=== PATIENT | female | born 1965 | race Hispanic/Latino ===

== ENCOUNTER 2019-01-29 07:19 | Day surgery (SDC) | payer BC ==
--- NOTE | 2019-01-27 17:07 | RAD REPORT ---
EXAM DESCRIPTION: RAD - Chest Pa And Lat (2 Views) - 01/27/2019 4:41 pm CLINICAL HISTORY: Preop chest examination, pending cholecystectomy COMPARISON: March 2016 TECHNIQUE: PA and lateral views of the chest were obtained. FINDINGS: The lungs are clear. Lung markings are similar to comparison. Heart size is normal and ce ntral vasculature is within normal limits. No pleural effusion or pneumothorax seen. No acute bony finding noted. No aortic abnormality. IMPRESSION: No acute cardiopulmonary process. No significant change from comparison.
[2019-01-27 17:13] LABS: Absolute Lymphocytes (CBC) 2.4 K/uL (0.7-4.9); Absolute Monocytes 0.9 K/uL (0.1-1.3); Absolute Neutrophil 6.6 K/uL (1.8-8.0); Basophils % 1.4 % (0-1.3); Eosinophils % 1.4 % (0-4.4); Hematocrit 45.6 % (36.0-45.0); Lymphocytes % 23.8 % (15.3-44.8); MPV 8.7 fL (7.6-11.3); Monocytes % 8.5 % (3.3-12.3); RBC Red Blood Cell Count 4.99 M/uL (3.86-4.86)
[2019-01-27 17:27] LABS: ALT/SGPT 25 U/L (12-78); AST/SGOT 17 U/L (15-37); Alkaline Phosphatase 91 U/L (45-117); Amylase Level 48 U/L (25-115); Bilirubin Direct < 0.1 mg/dL (0-0.2); Bilirubin Total 0.2 mg/dL (0.2-1.0); Lipase 129 U/L (73-393); Potassium 3.8 mmol/L (3.5-5.1); Protein, Total 8.1 g/dL (6.4-8.2)
--- NOTE | 2019-01-28 07:14 | EKG ---
Test Date: 2019-01-27 Test Time: 16:34:34 Wood Pole Treater: HAIM MEASUREMENT RESULTS: Intervals: Rate: 80 OR: 154 QRSD: 76 QT: 372 QTc: 429 [place]: P: 40 OR: 154 QRS: 16 T: 40 INTERPRETIVE STATEMENTS: Normal sinus rhythm Possible Left atrial enlargement Borderline ECG Compared to ECG 11/09/2011 08:50:12 No significant changes Electronically Signed On 01-28-19 07:13:28 CDT by Adi Gallegos
[2019-01-29] MEDS ORDERED: Ringers Lactate 1,000 ML IV ONE (07:37)
[2019-01-29] MEDS ORDERED: CEFOXITIN/SWI 1gm 1 GM/10 ML SYR ONE (07:52)
[2019-01-29] MEDS ORDERED: LIDOCAINE 2% MPF 5 ML VIAL ONE (08:02)
[2019-01-29] MEDS ORDERED: ROCURONIUM 50 MG/5 ML VIAL IV ONE (08:02)
[2019-01-29] MEDS ORDERED: FENTANYL CITR 100 MCG/2 ML ONE (08:02)
[2019-01-29] MEDS ORDERED: MIDAZOLAM HCL 2 MG/2 ML INJ ONE (08:02)
[2019-01-29] MEDS ORDERED: PROPOFOL 200 MG/20 ML VIAL IV ONE (08:03)
[2019-01-29] MEDS ORDERED: DEXAMETHASONE 10 MG/ML VIAL ONE (08:03)
[2019-01-29] MEDS ORDERED: BUPIVACAINE 0.5% PF 10 ML VIAL ONE (09:10)
[2019-01-29] MEDS ORDERED: GLYCOPYRROLATE 0.2 MG/ML SYR ONE ×2 (09:12→09:24)
[2019-01-29] MEDS ORDERED: KETOROLAC 30 MG/ML INJ ONE (09:24)
[2019-01-29] MEDS ORDERED: NEOSTIGMINE 1 MG/ML -10 ML VIAL ONE (09:25)
[2019-01-29] MEDS ORDERED: MORPHINE 10 MG/ML VIAL ONE (09:28)
--- NOTE | 2019-01-29 09:29 | P.BOP ---
Preoperative diagnosis: symptomatic cholelithiasis, gallbladder polyps Postoperative diagnosis: same Primary procedure: Laparoscopic cholecystectomy Cold Type Composing Machine Operator: Anna Stephens (Ernestine) Estimated blood loss: <10cc Specimen: gb Findings: as above Anesthesia: General Complications: None Transferred to: Recovery Room Condition: Good
[2019-01-29] MEDS: HYDROMORPHONE HCL 1 MG/ML INJ ONE ×2 (09:54→10:08)
[2019-01-29] MEDS ORDERED: CODEINE 30MG/APAP 300MG TAB ONE (11:00)
[2019-01-29] MEDS ORDERED: ONDANSETRON 4 MG/2 ML VIAL ONE (11:01)
--- NOTE | 2019-01-30 00:45 | OP ---
Date of Procedure: 01/29/2019 Surgeon: Frankie El MD Copy Holder: Griffin Kaur Preoperative Diagnoses: Symptomatic cholelithiasis, gallbladder polyps, right upper quadrant pain. Postoperative Diagnoses: Symptomatic cholelithiasis, gallbladder polyps, right upper quadrant pain. Procedure: Laparoscopic cholecystectomy. Ebl: Less than 10 cc. Specimen: Gallbladder. Anesthesia: General plus local. Indications: This is the case of a female who comes to us with above diagnosis. Fully explained the benefits, alternatives, risks of laparoscopic, possible open cholecystectomy, which include, but not limited to infection, bleeding, damage to adjacent structures, anesthesia complication, choledocholi thiasis, bile leak, pancreatitis, [place], even . She also understands this may not relieve any symp toms, she might need more than one surgical intervention. She understood, signed a consent. Description Of Procedure: The patient was brought to the operating room, placed in supine position. Anesthesia was done without complication. Abdominal area was prepped and draped in a sterile fashio n. Marcaine 0.5% was injected for local anesthetic, followed by sharp incision of the skin in the in fraumbilical region. Incision was carried down to fascia, which was opened under direct vision. Per itoneum was encountered, opened under direct vision. Vicryl #1 was placed inside the fascia. Dimple trocar was carefully introduced. Pneumoperitoneum was obtained. I placed 3 more trocars, 5 mm each one of them, 1 in the epigastric area, 2 in the right upper quadrant under direct visualization. Th is allowed me to put a grasper in the fundus of the gallbladder, another grasper in the infundibulum, retracted the gallbladder in the inferolateral fashion exposing the triangle of Calot and obtaining critical view of safety. Cystic duct and cystic artery were clearly isolated, freed circumferentiall y, and a connection between those and the gallbladder were clearly identified. I proceeded to ligate those by using at least 3 clips proximal, 1 clip distal, ligation in middle. Same was done with the cystic artery. No bile leak. No bleeding. The gallbladder was removed from liver using Bovie caut erizer and removed from abdominal cavity using EndoCatch through the umbilical incision. The area wa s inspected once again. No bile leak. No bleeding. At that moment, I proceeded to remove the troca rs under direct vision, deflated the pneumoperitoneum, closed the fascia with #1 Vicryl, irrigated coles bcu tissue, closed that with 3-0 chromic and skin in a subcuticular fashion with 3-0 chromic. Sponge count and instrument counts were correct. The patient tolerated the procedure well. The patient wa s sent to recovery in stable condition. CORNELIO/BETSEY Voice ID: [id number] Report ID: [id number]
--- NOTE | 2019-01-30 00:48 | DS ---
Date of Discharge: 01/29/2019 Diagnosis: Symptomatic cholelithiasis, gallbladder polyps. Procedure: Laparoscopic cholecystectomy. Disposition: Home. Activity: As tolerated. No heavy lifting. Followup: Follow up in my office in 1 week. Call for appointment, [phone]. Keep the area dry for 48 hours, then may shower. Keep Steri-Strips intact. Medications: See orders. CORNELIO/BETSEY Voice ID: [id number] Report ID: [id number]
== END 2019-01-29 11:45 | disposition home or self-care (01) ==
LOC: OR 07:19
PROVIDERS: ATTEND Surgery
PROC: 0FT44ZZ Resection of Gallbladder, Percutaneous Endoscopic Approach (ICD-10-PCS; principal; 2019-01-29 08:45)
DX: K80.10 Calculus of gallbladder with chronic cholecystitis without obstruction (principal); I10 Essential (primary) hypertension; Z79.899 Other long term (current) drug therapy
CPT/HCPCS: 36415; 71046; 80048; 80076; 82150; 83690; 85025; 88304; 93005; J1100; J1170; J2250; J2405; J2704; J2710; J3010

== ENCOUNTER 2021-05-24 11:54 | Day surgery (SDC) | payer OTHER ==
--- NOTE | 2021-05-18 14:49 | RAD REPORT ---
EXAM DESCRIPTION: RAD - Chest Pa And Lat (2 Views) - 05/18/2021 2:19 pm CLINICAL HISTORY: preop, pending bladder surgery COMPARISON: December 2018 TECHNIQUE: Frontal and lateral views of the chest were obtained. FINDINGS: The lungs are clear. Interstitial pattern matches comparison. Heart size is normal and ce ntral vasculature is within normal limits. No pleural effusion or pneumothorax seen. No acute bony finding noted. No aortic abnormality. IMPRESSION: No acute cardiopulmonary process. No significant change from comparison study.
--- NOTE | 2021-05-18 16:24 | EKG ---
Test Date: 2021-05-18 Test Time: 13:08:38 Ticket Printer: ZOE MEASUREMENT RESULTS: Intervals: Rate: 82 [place]: 154 QRSD: 74 QT: 372 QTc: 434 [place]: P: 43 [place]: 154 QRS: 24 T: 53 INTERPRETIVE STATEMENTS: Normal sinus rhythm Normal ECG Compared to ECG 01/27/2019 16:34:34 No significant changes Electronically Signed On 05-18-21 16:22:44 CDT by Ananth Carrasquillo
[2021-05-19 09:25] LABS: Urine Appearance CLEAR (Clear); Urine Bilirubin NEGATIVE (Negative); Urine Blood NEGATIVE (Negative); Urine Color YELLOW (Yellow); Urine Glucose NEGATIVE (Negative); Urine Protein NEGATIVE (Negative); Urine Urobilinogen 0.2 mg/dL (0.2-1.0); Urine pH 5.5 (5.0-7.0)
[2021-05-19 09:46] LABS: Absolute Lymphocytes (CBC) 1.7 K/uL (0.7-4.9); Basophils % 0.8 % (0-1.3); Hematocrit 41.6 % (36.0-45.0); Lymphocytes % 23.6 % (15.3-44.8); MPV 8.2 fL (7.6-11.3); RBC Red Blood Cell Count 4.51 M/uL (3.86-4.86)
[2021-05-19 09:54] LABS: BUN Blood Urea Nitrogen 19 mg/dL (7-18); Bicarbonate 25 mmol/L (21-32); Glucose Level 105 mg/dL (74-106); Potassium 3.8 mmol/L (3.5-5.1); Sodium Level 141 mmol/L (136-145)
[2021-05-19 10:05] LABS: Urine Microscopic Reflex ORDER UMIC
[2021-05-19 10:06] LABS: Urine Bacteria <20 /HPF (<20); Urine RBC <5 /HPF (NONE SEEN)
[2021-05-24] MEDS ORDERED: Ringers Lactate 1,000 ML IV ONE (12:33)
[2021-05-24] MEDS ORDERED: CEFAZOLIN/SWI 1gm 1 GM/10 ML SYR ONE ×3 (12:33→20:56)
[2021-05-24] MEDS ORDERED: FENTANYL CITR 100 MCG/2 ML ONE (20:07)
[2021-05-24] MEDS ORDERED: propofoL 200 MG/20 ML VIAL IV ONE (20:08)
[2021-05-24] MEDS ORDERED: LIDOCAINE 1% MPF 5 ML VIAL ONE (20:08)
[2021-05-24] MEDS ORDERED: MIDAZOLAM HCL 2 MG/2 ML INJ ONE (20:08)
[2021-05-24] MEDS ORDERED: dexAMETHasone 4 MG/ML VIAL ONE (20:08)
[2021-05-24] MEDS ORDERED: ONDANSETRON 4 MG/2 ML VIAL ONE (20:10)
[2021-05-24] MEDS ORDERED: NA CHLORIDE 0.9% 50 ML ONE (20:23)
[2021-05-24] MEDS: BUPIVACAINE 0.25% PF 10 ML VIAL ONE ×2 (20:39→20:41)
[2021-05-24] MEDS: VASOPRESSIN 20 UNIT/ML VIAL ONE ×2 (20:41→21:00)
[2021-05-24] MEDS ORDERED: IBUPROFEN 200 MG TAB PO PRN (21:10)
[2021-05-24] MEDS ORDERED: HYDROCODONE/APAP 5/325 MG TAB PO PRN (21:10)
[2021-05-24] MEDS ORDERED: HOME MED 1 EA UNK (Estradiol [Estradiol] 42.5 GM Cream.Appl) VG SCH (21:15)
--- NOTE | 2021-05-24 21:15 | P.BOP ---
Preoperative diagnosis: BRIE Postoperative diagnosis: same Primary procedure: MUS T-O (TVT-O) cystoscopy Manager Rail: NONE,NONE Estimated blood loss: min Specimen: none Findings: -1/-1/-/6/mod/7-8/-1/0/-6 Complications: None Drain(s): Urinary catheter Implants: tvt-o Transferred to: Recovery Room Condition: Good
[2021-05-24] MEDS: MEPERIDINE HCL 25 MG/ML SYR ONE ×2 (21:53→22:05)
--- NOTE | 2021-05-24 22:01 | OP ---
Date of Procedure: 05/24/2021 Surgeon: Hillary Kirby MD Preoperative Diagnosis: Stress urinary incontinence. Postoperative Diagnosis: Stress urinary incontinence. Procedures Performed: Mid urethral sling through the transobturator approach (TVT-O) and cystoscopy. Anesthesia: General. Specimens: No specimens. Complications: No complications. Drains: Urinary catheter. Implants: TVT-O. Findings: -1, -1, -4, 6 moderate, 7 to 8, -1, 0, and -6. There was a POP-Q urethral hypermobility i n the outpatient setting, mixed incontinence for this patient. She is already on an anticholinergic to treat the overactivity. Description Of Procedure: After informed consent was verified, she was brought back to the OR, place d in supine fashion on the operating table. 2 g of Ancef were given. She was placed in a dorsal lit hotomy position using Mohamud stirrups. Abdomen, vulva, vagina, and perineum were prepped and draped i n a sterile fashion. Chavis was placed to drain the bladder and then retracted superiorly. Scant dony unt of urine was voided. She has been n.p.o. all day. However, she has received IV fluids. Her urinary output needs to be monitored at home. Mid urethral area was picked up with Allis clamps after the POP-Q was done, injected with dilute vaso pressin 20 mL in the midline and on both sides. A 1 cm incision was made in the mid urethral area wi th a 15 blade. There was a slight indentation on the vaginal epithelium and underlying subcutaneous tissues right in the area of the incision to be made. Strangely, no other scar or foreign body was n oted at this point. An incision was made with a scalpel 1 cm. Underlying fascia was also retracted with Allis clamps wit h the dissection was performed underneath, creating a tunnel for the sling carrying to the obturator space, hugging the inferior pubic ramus at a 45-degree angle to the horizontal and vertical planes. Once the obturator membrane was perforated, the track was expanded by pulling the scissors out while they were kept open. Once the track was widened optimally, then dissection was performed on the oppo site side in a very similar manner without any problems. The kit was opened. Wing guide was placed. Needle was guided through the wing guide and made sure t hat there was no perforation in the fornix, then hugging the inferior pubic ramus. Once the guide wa s removed, the spike was passed. The plastic dilator was retrieved at least 2-3 cm outside the groin fold at the horizontal line at least about a cm and half above the level of the external meatus. Th e dilator was pulled out through the skin. Plastic dilator was cut. Mesh and grafts were clamped wi th a Diana, similar pass on the opposite side and once the dilator was cut, mesh and grafts were clam ped. The mid urethral area was focused on and tensioning of the sling was done appropriately. Then, the mesh was irrigated with antibiotic solution and the area was closed with a continuous running 3- 0 Vicryl suture making sure the edges of the vaginal epithelial incision and the connective tissues w ere all apposed and completely closed. There was excellent hemostasis. The mesh was trimmed, flushe d with the skin, and skin incisions and the groins were closed with Dermabond. Instrument, needle, a nd sponge counts were correct at the end of the case. Chavis was removed and cystoscopy was performed with a 30-degree lens, normal saline, and 17-[place] sheath. No evidence of any trauma to the bladde r or foreign body. No evidence of any tumor, squamous metaplasia in the trigonal area. The rest of the bladder unremarkable. Scope was pulled out. Bladder was drained. Chavis was replaced. The jennifer ent was recovered from anesthesia and taken to PACU in stable condition. EBL was minimal. She will be discharged home with a Chavis and she will have a voiding trial in the morning. YUMIKO/BETSEY Voice ID: [id number] Report ID: [id number]
[2021-05-24] MEDS ORDERED: ACETAMINOPHEN 500 MG TAB ONE (22:52)
[2021-05-24 23:38] VITALS: BP 136/72; TEMP 97.6; O2SAT 100
[2021-05-25] MEDS ORDERED: lisinopriL 20 MG TAB PO SCH (06:00)
[2021-05-25] MEDS ORDERED: HOME MED 1 EA UNK (Oxybutynin Chloride [Oxybutynin Chloride Er] 10 MG Tab.Er.24) PO SCH (09:00)
== END 2021-05-24 23:15 | disposition home or self-care (01) ==
LOC: OR 11:54
PROVIDERS: ATTEND Obstetrics & Gynecology
PROC: 0TSD0ZZ Reposition Urethra, Open Approach (ICD-10-PCS; principal; 2021-05-24 14:30)
DX: N39.3 Stress incontinence (female) (male) (principal); N32.81 Overactive bladder; N81.2 Incomplete uterovaginal prolapse; N95.2 Postmenopausal atrophic vaginitis; I10 Essential (primary) hypertension; Z20.822 Contact with and (suspected) exposure to COVID-19
CPT/HCPCS: 93005; 85025; 80048; 36415; 86900; 86850; 85610; 86901; 85730; 71046; 57288; U0003; J2704; J1100; J2250; J3010; J2175; J0690 ×3; J7120; J2405; 81003; 81015

== ENCOUNTER 2022-03-07 10:31 | Day surgery (SDC) | payer OTHER ==
[2022-03-03 09:38] LABS: Absolute Lymphocytes (CBC) 2.6 K/uL (0.7-4.9); Hematocrit 44.2 % (36.0-45.0); Lymphocytes % 32.6 % (15.3-44.8); MPV 8.2 fL (7.6-11.3); RBC Red Blood Cell Count 4.84 M/uL (3.86-4.86)
[2022-03-03 09:48] LABS: Potassium 3.8 mmol/L (3.5-5.1)
[2022-03-03 09:51] LABS: Urine Appearance CLEAR (Clear); Urine Bilirubin NEGATIVE (Negative); Urine Color YELLOW (Yellow); Urine Glucose NEGATIVE (Negative); Urine Specific Gravity 1.025 (1.005-1.030)
[2022-03-03 09:52] LABS: Urine Blood NEGATIVE (Negative); Urine Microscopic Reflex NO UMIC; Urine Protein NEGATIVE (Negative); Urine Urobilinogen 0.2 mg/dL (0.2-1.0); Urine pH 5.5 (5.0-7.0)
[2022-03-03 10:24] LABS: Protime INR 0.99
[2022-03-07] MEDS ORDERED: VASOPRESSIN 20 UNIT/ML VIAL ONE (10:52)
[2022-03-07] MEDS ORDERED: BUPIVACA 0.5%/EPI 0.0005%/PF 30 ML VIAL ONE (10:52)
[2022-03-07] MEDS ORDERED: NA CHLORIDE 0.9% 100 ML ONE (10:52)
[2022-03-07] MEDS ORDERED: CEFAZOLIN SODIUM 1 GM/VIAL ONE (10:53)
[2022-03-07] MEDS ORDERED: NS 0.9% VIAL 10 ML ONE (10:53)
[2022-03-07] MEDS ORDERED: Ringers Lactate 1,000 ML IV ONE (10:59)
[2022-03-07] MEDS ORDERED: CEFAZOLIN 3 GM in NA CHLORIDE 0.9% 100 ML IVPB ONE (11:00)
[2022-03-07] MEDS ORDERED: propofoL 200 MG/20 ML VIAL IV ONE (11:03)
[2022-03-07] MEDS ORDERED: MIDAZOLAM HCL 2 MG/2 ML INJ ONE (11:04)
[2022-03-07] MEDS ORDERED: dexAMETHasone 10 MG/ML VIAL ONE (11:04)
[2022-03-07] MEDS ORDERED: FENTANYL CITR 250 MCG/5 ML ONE (11:04)
[2022-03-07] MEDS ORDERED: KETOROLAC 30 MG/ML INJ ONE (11:04)
[2022-03-07] MEDS ORDERED: ROCURONIUM 50 MG/5 ML VIAL IV ONE (11:04)
[2022-03-07] MEDS ORDERED: LIDOCAINE 1% MPF 5 ML VIAL ONE (11:04)
[2022-03-07] MEDS ORDERED: ONDANSETRON 4 MG/2 ML VIAL ONE (11:05)
[2022-03-07] MEDS ORDERED: NS 0.9% VIAL 20 ML ONE (14:28)
[2022-03-07] MEDS ORDERED: Phenylephrine HCl 10 MG/ML 1 ML VIAL ONE (14:28)
[2022-03-07] MEDS ORDERED: VECURONIUM 10 MG/VIAL IV ONE (14:28)
[2022-03-07] MEDS ORDERED: NEOSTIGMINE 1 MG/ML -10 ML VIAL ONE (15:01)
[2022-03-07] MEDS ORDERED: GLYCOPYRROLATE 0.2 MG/ML SYR ONE (15:13)
[2022-03-07] MEDS ORDERED: HYDROCODONE/APAP 5/325 MG TAB PO PRN (15:28)
[2022-03-07] MEDS ORDERED: IBUPROFEN 200 MG TAB PO PRN (15:28)
[2022-03-07] MEDS ORDERED: PROMETHAZINE INJ 25 MG/ML AMP IV PRN (15:28)
--- NOTE | 2022-03-07 15:35 | P.BOP ---
Preoperative diagnosis: incomplete emptying, CÁRDENAS , BRIE Postoperative diagnosis: same, stage 2 uterovaginal prolapse Primary procedure: urethrolysis, sling partial excision, cystourethroscopy Secondary procedure: Bulking with Bulkamid, cysto Kerfer Machine Operator: NONE,NONE Estimated blood loss: 50 Specimen: mesh Findings: significant apical prolapse, -1/0/0/5/mod/7/0/-1/-3, no urethral injury Anesthesia: General Complications: None Implants: Bulkamid, .8ml Transferred to: Recovery Room Condition: Good
[2022-03-07] MEDS ORDERED: HYDROCODONE/APAP 5/325 MG TAB ONE (16:39)
[2022-03-07 17:39] VITALS: BP 118/60; TEMP 96.6
[2022-03-07 17:40] VITALS: O2SAT 95
[2022-03-08] MEDS ORDERED: lisinopriL 20 MG TAB PO SCH (06:00)
[2022-03-08] MEDS ORDERED: HOME MED 1 EA UNK (Oxybutynin Chloride [Oxybutynin Chloride Er] 10 MG Tab.Er.24) PO SCH (09:00)
[2022-03-08] MEDS ORDERED: PANTOPRAZOLE 40MG TABLET PO SCH (09:00)
--- NOTE | 2022-03-08 11:08 | OP ---
Date of Procedure: 03/07/2022 Surgeon: Hillary Kirby MD Electronic System Engineer: None. Preoperative Diagnoses: Incomplete bladder emptying, bladder outlet obstruction (status post mid ure thral sling in May 2021 that is 10 months ago), and stress urinary incontinence. Postoperative Diagnoses: Incomplete bladder emptying, bladder outlet obstruction, and stress urinary incontinence, and stage II uterovaginal prolapse. Primary Procedure: Urethrolysis, sling partial excision, cystourethroscopy, and urethral bulking wit h Bulkamid, and cystoscopy. Anesthesia: General. Specimens: Mesh. Findings: Significant apical prolapse dropping the anterior wall which made the kink in the urethra much more exaggerated. Her POP-Q was -1, 0, 0, 5; moderate 7, 0, -1, - 3. After dissecting down to the mesh, there was more like a cord effect from mesh being rolled together and this was released. Mesh was excised half a centimeter on each side and urethra was released with urethrolysis. No evidence of any urethral injury. Cystourethroscopy was performed with a 30-degree lens inside the bladder and a 0-degree lens in the urethra. The suburethral tissues were buttressed under the urethra in 2 layers before the vaginal epithelium w as closed. Ebl: 50. Complications: None. Drains: None. Implants: Bulkamid 0.7 mL was used. Disposition: Transferred to the recovery room in a stable condition. Indication: The patient is a 56-year-old female who presented with stress urinary incontinence. Had a mid urethral sling with significant improvement. However, on routine screening for postvoid has r emained to have higher post voids at 6 months and 9 months postop, so we discussed about the risk of bladder outlet obstruction, high PVRs causing recurrent bladder infections and increasing bladder pre ssures reflecting into the kidneys. Discussed about the urethrolysis, the patient was significantly concerned about recurrent stress urinary incontinence, which she was extremely satisfied with not hav ing since the procedure. So, discussed about urethral bulking instead of repeat sling. So, she was consented accordingly for urethrolysis, partial sling excision and urethral bulking. Procedure In Detail: She was brought to the hospital and re-consented. Her daughter was by her side . Questions were asked and answered appropriately. She was then taken back to OR. Ancef 3 g were g akien. SCDs were placed. General anesthesia was given. Then she was positioned in a dorsal lithotom y fashion with the Mohamud stirrups. Vulva, vagina, perineum, medial thighs and lower abdomen were pre pped and draped in a sterile fashion. Chavis was placed to drain the bladder and retracted with a Keith ly clamp to it. The suburethral area was exposed and speculum was used for exposure. Marcaine 0.25% with epi and dilute vasopressin were both injected in this area. A 2 cm incision was made in the suburethral area with a scalpel and dissection was carried down all the way down to the l evel of the mesh and once this was identified, the incision was extended superiorly and inferiorly to expose the entire area. Once this was done, dissected laterally to create good flaps and then held the mesh with hemostats and dissection was performed to tunnel on both sides under the mesh staying s uperficial to the mesh between the mesh and the vaginal epithelium. Once the tunnels were retraced o n both sides, then the mesh was released from the underlying suburethral tissues with a hemostat in t he midline first. Then, once this was released and I could get all around the mesh, then this was he ld on either sides with 2 hemostats and cut in the center. Once there was the release, there was sig nificant release of the urethra. Then, the mesh was dissected from underlying tissues on either side s and excised at least half a centimeter. The cord-like effect that was felt had resolved at this ti me. However, with the prolapse almost seemed like the urethra was pretty vertical from the loss of s upport. The cystourethroscopy was performed. The palpation was done to see if there was any close i njury to the underlying urethra. There was none. Urethroscopy was performed with a 0-degree lens an d normal saline using the cystoscope and it appeared to be completely intact and even with the rigid camera and palpation, there was no evidence of any injury. Once the bladder was filled and Chavis was still left out and with Valsalva maneuver, there was signif icant leakage. So, first closed the vaginal subepithelium and vaginal epithelium. The underlying ti ssues were closed in 2 layers with interrupted 3-0 Vicryl sutures and then 3-0 Monocryl was used to c lose in a continuous running horizontal mattress fashion. The entire incision was closed and hemosta tic. I went on to examine the bladder with 30-degree lens. The entire bladder was well visualized. No ev idence of any mesh in the bladder. The cystoscope was removed. The bladder was completely drained. Then, a pediatric cystoscope was taken. The Bulkamid sheath was placed. This was primed. The Bulk amid syringe was primed as well and attached to the needle. Then using the guide placed at 5 o'clock position. I went into the urethra right at the internal meatus and the needle was extended through this 2 cm further past the sheath. Then the whole system was retracted to the mid urethral area. Th e injection was performed with the bevel facing towards the tissues and at least 0.2-0.3 mL was injec surjit here and then at 2 o'clock position another 0.2 mL was injected and came over to 11 o'clock posit ion 10 to 11 and injected 0.3 and the other side 0.2. There could have been some leakage of the agen t and then I had to inject a little bit further between the 5 and 1 o'clock position to bulk it sligh tly better. Once this was done, there was good occlusion of the lumen without occluding it too much. The scope was pulled out and the patient was left to empty her bladder for a voiding trial Instrument and sponge counts were correct. She was recovered from anesthesia and taken to PACU in st able condition. All this was explained to her daughter and the patient when she was slightly awake. She had a voiding trial for the evening which later she emptied 300 and had 50 mL left. So, she was sent home without a catheter. She has a 1-week followup for the voiding trial and follow up on her SK/MODL Voice ID: [id number] Report ID: [id number]
== END 2022-03-07 16:46 | disposition home or self-care (01) ==
LOC: OR 10:31
PROVIDERS: ATTEND Obstetrics & Gynecology
PROC: 0TVD8ZZ Restriction of Urethra, Via Natural or Artificial Opening Endoscopic (ICD-10-PCS; principal; 2022-03-07 11:30)
PROC: 0TN Urinary System, Release (ICD-10-PCS; 2022-03-07 11:30)
DX: N39.3 Stress incontinence (female) (male) (principal); R39.14 Feeling of incomplete bladder emptying; N95.2 Postmenopausal atrophic vaginitis; R39.89 Other symptoms and signs involving the genitourinary system; N81.84 Pelvic muscle wasting; N32.81 Overactive bladder; I10 Essential (primary) hypertension; Z20.822 Contact with and (suspected) exposure to COVID-19
CPT/HCPCS: 85025; 80048; 36415; 86900; 86850; 85610; 86901; 88300; 85730; 81003; 51715; 57287; U0003; J2704; J2710; J2370; J2250; J3010; J1100; J7120; J2405; J0690; L8606

== ENCOUNTER 2022-05-09 08:37 | Day surgery (SDC) | payer OTHER ==
[2022-05-05 11:11] LABS: SARS-CoV-2 Antigen Rapid Res Negative (Negative)
[~2022-05-09 08:37] MED LIST: CEFAZOLIN 3 GM in NA CHLORIDE 0.9% 100 ML IVPB SCH
[2022-05-09] MEDS ORDERED: Ringers Lactate 1,000 ML IV ONE (09:00)
[2022-05-09] MEDS ORDERED: CEFAZOLIN 2 GM IN 0.9% NACL 2 GM/100 ML BAG ONE (09:00)
[2022-05-09] MEDS ORDERED: CEFAZOLIN SODIUM 1 GM/VIAL ONE (09:00)
[2022-05-09] MEDS ORDERED: NS 0.9% VIAL 0 ML ONE (10:35)
[2022-05-09] MEDS ORDERED: ACETAMINOPHEN 500 MG TAB PO ONE (11:09)
[2022-05-09] MEDS ORDERED: dexAMETHasone 10 MG/ML VIAL ONE (12:13)
[2022-05-09] MEDS ORDERED: LIDOCAINE 1% MPF 5 ML VIAL ONE (12:13)
[2022-05-09] MEDS ORDERED: MIDAZOLAM HCL 2 MG/2 ML INJ ONE (12:13)
[2022-05-09] MEDS ORDERED: FENTANYL CITR 100 MCG/2 ML ONE (12:13)
[2022-05-09] MEDS ORDERED: propofoL 200 MG/20 ML VIAL IV ONE (12:13)
[2022-05-09] MEDS ORDERED: ONDANSETRON 4 MG/2 ML VIAL ONE (12:15)
[2022-05-09 15:44] VITALS: BP 108/62; TEMP 97.3; O2SAT 98
--- NOTE | 2022-05-10 02:43 | OP ---
Date of Procedure: 05/09/2022 Surgeon: Hillary Kirby MD Art Objects Supervisor: No assistants. Preoperative Diagnosis: Recurrent stress urinary incontinence, status post bulking at the time ureth rolysis was performed. Postoperative Diagnosis: Recurrent stress urinary incontinence, status post bulking at the time uret hrolysis was performed. Procedure: Urethral bulking with cystourethroscopy. Complications: None. Specimen: Drain. Condition: The patient's condition is stable. Anesthesia: General with mask. Ebl: Minimal. Urine Output: Not measured. Indication: The patient is a 56-year-old female, who initially presented with stress urinary inconti nence, evaluated in the ED. She had a mid urethral sling in 2020. Had resolution of incontinence, h owever, she had voiding dysfunction most likely from obstruction. Due to unrepaired significant ante rior wall prolapse that was noted, she had urethrolysis by me and at the same time, had urethral bulk ing. However, in the postoperative period, the patient has been significantly incontinent from the BRIE and has been very unhappy. She has been presented with options of either repeat Bulkamid injection vers us mid urethral sling that could be done again, however, in conjunction with a prolapse repair so lilly t we could most likely avoid voiding dysfunction the best of her ability. The patient and daughter were counseled together. The patient leaned towards having a second Bulkami d injection and she is mostly asymptomatic from the prolapse. Description Of Procedure: After informed consent was verified here today, taken back to OR, Ammy victoria s given. She was placed in a dorsal lithotomy position after general anesthesia was given. Vulva, v agina, and perineum were prepped and draped in a sterile fashion. A pediatric cystoscope was used to perform cystourethroscopy. The old injection sites could be seen at 10 o'clock and 1 o'clock positi ons to a small degree, however, no significant observable coaptation was noted. So, once the Bulkamid needle was introduced into the sheath, the sheath was taken through the interna l meatus and then the needle extended 2 cm beyond. The tip of the sheath and this was all drawn back 2 cm into the urethra. The injection was started at 2 o'clock position. Significant amount, I thin k, 0.5 mL was injected here, then 0.5 mL in the right lower side about 8 o'clock position. There was a wastage of 0.1 mL, opened a new syringe, injected at 3 positions both at 10 o'clock, which is a li ttle bit more distal into the urethra, injection, then at 6 o'clock position, a small amou nt and at 5 o'clock position. Once all these were injected, there appeared to be significant coaptat ion. The urethroscope was removed and Valsalva maneuver was performed. There was no evidence of inc ontinence at this time as the bladder was filled with a . At the beginning of the procedur e, the same maneuver was done and there was a significant leakage of urine, so e in satisfactory resp onse as expected. All the instruments were removed. Instrument and sponge counts were correct at th e end of the case. The patient recovered from anesthesia and taken to PACU in stable condition. Ebl: Minimal. Her family was updated about her procedure. She will do voiding trial before she leaves today and th en follow up in 1 week. YUMIKO/BETSEY Voice ID: [id number] Report ID: [id number]
== END 2022-05-09 15:52 | disposition home or self-care (01) ==
LOC: OR 08:37
PROVIDERS: ATTEND Obstetrics & Gynecology
PROC: 0TVD8ZZ Restriction of Urethra, Via Natural or Artificial Opening Endoscopic (ICD-10-PCS; principal; 2022-05-09 10:30)
DX: N39.3 Stress incontinence (female) (male) (principal); Z20.822 Contact with and (suspected) exposure to COVID-19
CPT/HCPCS: 36415; 87811; 51715; J2704; J2250; J3010; J1100; J0690 ×2; J7120; J2405; L8606

== ENCOUNTER 2022-07-18 08:35 | Observation (INO) | payer OTHER ==
[2022-07-17 09:09] LABS: SARS-CoV-2 Antigen Rapid Res Negative (Negative)
[2022-07-18] MEDS: Ringers Lactate 1,000 ML IV SCH ×4 (07:00→23:00)
[~2022-07-18 08:35] MED LIST changes: +CEFAZOLIN 3 GM in NA CHLORIDE 0.9% 100 ML IVP SCH; -CEFAZOLIN 3 GM in NA CHLORIDE 0.9% 100 ML IVPB SCH
[2022-07-18] MEDS ORDERED: Ringers Lactate 1,000 ML IV ONE (08:50)
[2022-07-18] MEDS ORDERED: NA CHLORIDE 0.9% 100 ML IV ONE (11:59)
[2022-07-18] MEDS: CEFAZOLIN SODIUM 1 GM/VIAL ONE ×2 (12:17→12:55)
[2022-07-18] MEDS: VASOPRESSIN 20 UNIT/ML VIAL ONE ×2 (12:18→13:22)
[2022-07-18] MEDS ORDERED: dexAMETHasone 10 MG/ML VIAL ONE (12:33)
[2022-07-18] MEDS ORDERED: FENTANYL CITR 100 MCG/2 ML ONE ×3 (12:33→15:21)
[2022-07-18] MEDS ORDERED: propofoL 200 MG/20 ML VIAL IV ONE (12:33)
[2022-07-18] MEDS ORDERED: MIDAZOLAM HCL 2 MG/2 ML INJ ONE (12:33)
[2022-07-18] MEDS ORDERED: ROCURONIUM 50 MG/5 ML VIAL IV ONE (12:33)
[2022-07-18] MEDS ORDERED: NS 0.9% VIAL 20 ML ONE (12:33)
[2022-07-18] MEDS ORDERED: KETAMINE HCL 500 MG/5 ML VIAL ONE (12:33)
[2022-07-18] MEDS ORDERED: LIDOCAINE 2% MPF 5 ML VIAL ONE (12:34)
[2022-07-18] MEDS ORDERED: ONDANSETRON 4 MG/2 ML VIAL ONE ×2 (12:34→16:23)
[2022-07-18] MEDS ORDERED: EPHEDRINE SULF 50 MG/ML VIAL ONE (13:00)
[2022-07-18] MEDS ORDERED: ACETAMINOPHEN 500 MG TAB PO PRN (13:06)
[2022-07-18] MEDS ORDERED: ONDANSETRON 4 MG/2 ML VIAL IV PRN (13:06)
[2022-07-18] MEDS ORDERED: PROMETHAZINE INJ 25 MG/ML AMP IV PRN (13:06)
--- NOTE | 2022-07-18 13:11 | P.BOP ---
Preoperative diagnosis: Stage 2 uterovaginal prolapse BRIE Postoperative diagnosis: same
[2022-07-18] MEDS ORDERED: Ringers Lactate 2,000 ML IV ONE (14:53)
[2022-07-18] MEDS ORDERED: HYDROMORPHONE HCL 1 MG/ML INJ ONE (16:23)
[2022-07-18] MEDS: MEPERIDINE HCL 25 MG/ML SYR ONE ×2 (16:35→16:45)
--- OUTSIDE RECORDS SUMMARY | 2022-07-18 18:49 | XMS REPORT | Continuity of Care Document ---
:1965 Author Organization [facility] [place] [facility] t Address [address] [place] [address] Care Team Providers Name Role Phone GERSON GAXIOLA Primary Care Physician Unavailable NEERAJ SMITH Attending Clinician Unavailable Nurse, Adc Pob Immunization Attending Clinician Unavailable Neeraj Smith DO Attending Clinician Radiology Attending Clinician Unavailable RADIOLOGY Attending Clinician Unavailable IVA GRAVES Attending Clinician Unavailable Doctor Unassigned, [place] Attending Clinician Unavailable Lab, Adc Fam Pob I Attending Clinician Unavailable Humaira Brewer Attending Clinician HUMAIRA ANTONIO Attending Clinician Unavailable Payers Payer Name Policy Type Policy Number Effective Date Expiration Date S shahbaz HIM BCBS BLUE [id number] 2020 ADVANTAGE HMO 00:00:00 [employer] CHOICE POS [id number] 2020 II 00:00:00 COMMERCIAL [id number] 2015 2019 NON-CONTRACT 00:00:00 00:00:00 GENERIC Problems This patient has no known problems. Allergies, Adverse Reactions, Alerts Allergy Allergy Status Severity Reaction(s) Onset Inactive Treating Comm ents Source Name Type Date Date Clinician NO KNOWN Drug Active Univers ALLERGIE Class it of [facility] Medical [place] Social History Social Habit Start Date Stop Date Quantity Comments Source Exposure to Not sure [facility] SARS-CoV-2 (event) Medica l Branch Sex Ass[birth year] At [birth year] [facility] 00:00:00 00:00:00 Medical Branch Smoking Status Start Date Stop Date Source Unknown if ever smoked [facility] Medical Branch Medications Ordered Filled Start Stop Current Ordering Indication Dosage Frequency Signature Comments Components Source Medication Medication Date Date Medication? Clinician (SIG) Name Name acetaminoph Yes 1{tbl} Take 1 Un mayda en-codeine 5-19 tablet by ity of (TYLENOL-CO 00:00: mouth [place] DEINE #3) 00 every 6 Medical 300-30 mg (six) Branch tablet hours as needed for Pain (scale 4-6) (for cough). proMETHazin Yes 25mg Take 1 Univ ers e 5-19 tablet by ity of (PHENERGAN) 00:00: mouth [place] 25 mg 00 every 6 Medical tablet (six) Branch hours as needed for Nausea and Vomiting (N/V). acetaminoph Yes 1{tbl} Take 1 Un mayda en-codeine 5-19 tablet by ity of (TYLENOL-CO 00:00: mouth [place] DEINE #3) 00 every 6 Medical 300-30 mg (six) Branch tablet hours as needed for Pain (scale 4-6) (for cough). proMETHazin Yes 25mg Take 1 Univ ers e 5-19 tablet by ity of (PHENERGAN) 00:00: mouth [place] 25 mg 00 every 6 Medical tablet (six) Branch hours as needed for Nausea and Vomiting (N/V). acetaminoph Yes 1{tbl} Take 1 Un mayda en-codeine 5-19 tablet by ity of (TYLENOL-CO 00:00: mouth [place] DEINE #3) 00 every 6 Medical 300-30 mg (six) Branch tablet hours as needed for Pain (scale 4-6) (for cough). proMETHazin Yes 25mg Take 1 Univ ers e 5-19 tablet by ity of (PHENERGAN) 00:00: mouth [place] 25 mg 00 every 6 Medical tablet (six) Branch hours as needed for Nausea and Vomiting (N/V). acetaminoph Yes 1{tbl} Take 1 Un mayda en-codeine 5-19 tablet by ity of (TYLENOL-CO 00:00: mouth [place] DEINE #3) 00 every 6 Medical 300-30 mg (six) Branch tablet hours as needed for Pain (scale 4-6) (for cough). proMETHazin 2016-0 Yes 25mg Take 1 Univ ers e 5-19 tablet by ity of (PHENERGAN) 00:00: mouth [place] 25 mg 00 every 6 Medical tablet (six) Branch hours as needed for Nausea and Vomiting (N/V). acetaminoph 2016-0 Yes 1{tbl} Take 1 Un mayda en-codeine 5-19 tablet by ity of (TYLENOL-CO 00:00: mouth [place] DEINE #3) 00 every 6 Medical 300-30 mg (six) Branch tablet hours as needed for Pain (scale 4-6) (for cough). proMETHazin 2016-0 Yes 25mg Take 1 Univ ers e 5-19 tablet by ity of (PHENERGAN) 00:00: mouth [place] 25 mg 00 every 6 Medical tablet (six) Branch hours as needed for Nausea and Vomiting (N/V). acetaminoph 2016-0 Yes 1{tbl} Take 1 Un mayda en-codeine 5-19 tablet by ity of (TYLENOL-CO 00:00: mouth [place] DEINE #3) 00 every 6 Medical 300-30 mg (six) Branch tablet hours as needed for Pain (scale 4-6) (for cough). proMETHazin 2016-0 Yes 25mg Take 1 Univ ers e 5-19 tablet by ity of (PHENERGAN) 00:00: mouth [place] 25 mg 00 every 6 Medical tablet (six) Branch hours as needed for Nausea and Vomiting (N/V). acetaminoph 2016-0 Yes 1{tbl} Take 1 Un mayda en-codeine 5-19 tablet by ity of (TYLENOL-CO 00:00: mouth [place] DEINE #3) 00 every 6 Medical 300-30 mg (six) Branch tablet hours as needed for Pain (scale 4-6) (for cough). proMETHazin 2016-0 Yes 25mg Take 1 Univ ers e 5-19 tablet by ity of (PHENERGAN) 00:00: mouth [place] 25 mg 00 every 6 Medical tablet (six) Branch hours as needed for Nausea and Vomiting (N/V). Immunizations Ordered Filled Immunization Date Status Comments [facility] e Immunization Name Name SARS-COV-2 COVID-19 2021-11-02 Completed Unive rsity of MODERNA BOOSTER 00:00:00 [facility] ical VACCINE Branch SARS-COV-2 COVID-19 2020-12-26 Completed Unive rsity of MODERNA VACCINE 00:00:00 [place] Med ical Branch SARS-COV-2 COVID-19 2020-11-28 Completed Unive rsity of MODERNA VACCINE 00:00:00 [facility] Branch Procedures Procedure Date / Time Performed Performing Clinician Sour e SARS-COV-2 COVID-19 2021-11-02 21:21:05 Doctor Unassigned, No [facility] [place] VACCINE Name Medical Branch BOOSTER,0.25ML,IM (MODERNA) XR KNEE 3 VW LEFT 2020-11-26 21:32:41 Requisition, Paper Univers [facility] BI SCREENING MAMMOGRAM 2020-09-21 21:44:00 Requisition, Paper Un iversity of [place] BILATERAL Medical Branch ASSIGNMENT OF BENEFITS 2020-09-21 21:10:07 Doctor Unassigned, No [facility] COVID-19 (PCR 2020-04-05 20:48:00 Marisela [facility] [place] MOLECULAR TESTING) Medical [facility] h Encounters Start End Encounter Admission Attending Care Care Encounter Source Date/Time Date/Time Type Type Clinicians Facility Department ID 2021-11-02 2021-11-02 Outpatient Asim SMITH [facility] [id number] Univers 14:40:00 14:45:31 NEERAJ branden [facility] 2021-11-02 2021-11-02 Imm/Inj Nurse, Adc Pob Immunization [facility] [id number] Univers 14:40:00 14:45:31 Visit Neeraj Smith [id number] .10 [facility] [id number] [id number] dical [place] [address] Branch BUILDING 2020-12-26 2020-12-26 Outpatient [facility] [id number] Univers 08:15:00 08:15:00 ity [facility] 2020-11-28 2020-11-28 Outpatient [facility] [id number] Univers 08:10:00 08:10:00 ity [facility] 2020-11-26 2020-11-26 [facility] Radiology [facility] [id number] Univers 15:00:00 23:59:00 Encounter [place] [id number] ity of [place] [id number] [facility] [id number] [facility] 807 Branch 2020-11-26 2020-11-26 Outpatient R RADIOLOGY [facility] [id number] Univers 00:00:00 00:00:00 ity of [facility] 2020-11-13 2020-11-13 Outpatient R ELY, [facility] [id number] Univers 10:20:00 10:20:00 IVA ity [facility] 2020-09-21 2020-09-21 [facility] Radiology [facility] [id number] Univers 15:17:57 23:59:00 Encounter [place] [id number] ity of [place] [id number] [facility] [id number] [facility] 800 Branch 2020-09-21 2020-09-21 Outpatient R RADIOLOGY [facility] [id number] Univers 00:00:00 00:00:00 ity of [facility] 2020-09-21 2020-09-21 Orders Doctor IGNACIO [id number] Univers 00:00:00 00:00:00 Only Unassigned, YAJAIRA [id number] ity of [place] [facility] [id number] Gio as [id number] [facility] 009 Branch 2020-04-05 2020-04-05 Laboratory Lab, Adc Fam Pob I [facility] [id number] Univers 15:42:40 16:17:01 Only Marisela, [facility] [id number] ity of [place] [id number] Gio as Professdeejay [id number] [facility] 044 Branch Office Building One 2020-04-05 2020-04-05 Outpatient R MARISELA [facility] [id number] Univers 16:00:00 16:00:00 HUMAIRA ity [facility] 2020-04-05 2020-04-05 Letter Marisela [facility] [id number] Univers 00:00:00 00:00:00 (Out) [facility] [id number] it y [facility] [id number] dical nal 044 Branch Office [facility] One 2009-05-27 2009-05-27 Outpatient [facility] [id number] Univers 00:00:00 10:03:00 9 ity [facility] 2009-05-05 2009-05-05 Outpatient [facility] [id number] Univers 00:00:00 13:15:00 7 ity [facility] 2009-03-22 2009-03-22 Outpatient [facility] [id number] Univers 00:00:00 08:39:00 4 ity [facility] 2008-12-29 2008-12-29 Outpatient [facility] [id number] Univers 00:00:00 08:59:00 6 ity [facility] 2008-10-07 2008-10-07 Outpatient [facility] [id number] Univers 00:00:00 14:34:00 2 ity [facility] 2008-07-13 2008-07-13 Outpatient [facility] [id number] Univers 00:00:00 08:58:00 1 ity [facility] 2008-04-27 2008-04-27 Outpatient [facility] [id number] Univers 00:00:00 [facility]47:[facility] 2008-04-20 Outpatient [facility] [id number] Univers 00:00:00 [facility]43[facility] 2008[facility] 2008-01-28 Outpatient [facility] [id number] Univers 00:00:00 09:44:00 2 [facility] Results Test Description Test Test Results Result Source Time Comments Comments XR KNEE 3 VW 2020-11- Impression: No acute Un iversity of LEFT 26 osseous abnormality. [facility] Medical 21:55:32 RL: [id number] Electronically [place] signed by García Mayorga MD at 11/26/2020 3:55 PMOrdering Physician: MARIBEL MARTIN JR HISTORY: pain TECHNIQUE: Frontal and lateral, oblique views of the left ?knee COMPARISON: None FINDING: There is no fracture or dislocation. ?The tibial plateau appears intact. There is no evidence of knee joint effusion. No significant degenerativechanges identified. [facility], Radiant Results Inft User - 11/26/2020 3:56 PM CSTOrdering Physician: MARIBEL MARTIN JRHISTORY: painTECHNIQUE: Frontal and lateral, oblique views of the left kneeCOMPARISON: NoneFINDING: There is no fracture or dislocation. The tibial plateau appears intact. There is no evidence of knee joint effusion. No significant degenerativechanges identified.IMPRESSIONIm pression:No acute osseous abnormality.RL: [id number] SCREENING 2020-08- Examination:BI Universi ty of MAMMOGRAM 22 SCREENING MAMMOGRAM [place] Medical BILATERAL 22:14:14 BILATERAL Branch History:Patient is 54 year old and is seen for: ?Encounter for screening mammogram for breast cancer. Computer-aided detection (CAD) utilized. Comparisons: 02/28/2018 BI SCREENING MAMMOGRAM BILATERAL, 06/22/2009 DIGITAL MAMMOGRAM, SCREENING, 01/23/2008 MAMMOGRAM, BILATERAL-DIAGNOSTIC, and 10/15/2007 MAMMOGRAM SCREENING EXAM Findings:The breasts have scattered areas of fibroglandular density. RightThere are round and dystrophic calcifications in a grouped distribution seen in the upper outer quadrant of the right breast in the middle depth on the CC view. Compared to the previous study, there are no significant changes. There is a wesley shaped biopsy clip seen in the right breast. Compared to the previous study, there are no significant changes. There is no evidence of suspicious masses, calcifications, or other abnormal findings in the right breast. LeftThere is no evidence of suspicious masses, calcifications, or other abnormal findings in the left breast. Impression:No signs of malignancy. Recommendation:Annual mammographic follow-up - LeftAnnual mammographic follow-up - Right BI-RADS Category: Both 2 - Benign COVID-19 (PCR MOLECULAR TESTING) 2020-04-07 21:26:00 Test Item Value Reference Range Interpretation Comme nts SARS-CoV-2 PCR (test code = Not Detected Not Detected 48562-7) OLI (test code = OLI) Disclaimer: This test was developed and its performance characteristics determined by [facility]. It has not been cleared or approved by the US Food and Drug Administration (FDA). An Emergency Use Authorization (EUA) application is under review for FDA approval. This test is used for clinical purposes. It should not be regarded as investigational or for research. This laboratory is certified under the Clinical Laboratory Improvement Amendments (CLIA) as qualified to perform high complexity clinical laboratory testing. Not Detected: A negative result does not preclude COVID-19 infection and should not be used as the sole basis for treatment or other patient management decisions. Negative results must be combined with clinical observations, patient history, and epidemiological information. Positive: The results are provided to [facility]/CDC for tracking purposes. Invalid: Please collect a new specimen for repeat patient testing. Lab Interpretation (test code = Normal 64993-9) [facility]
[2022-07-18] MEDS: MORPHINE 2 MG/ML SYR IV PRN (20:14)
[2022-07-19] MEDS: HYDROCODONE/APAP 5/325 MG TAB PO PRN ×3 (00:38→19:44)
[2022-07-19] MEDS: Ringers Lactate 1,000 ML IV SCH ×5 (03:20→17:41)
[2022-07-19] MEDS ORDERED: lisinopriL 20 MG TAB PO SCH (06:00)
[2022-07-19] MEDS: MORPHINE 2 MG/ML SYR IV PRN ×2 (06:06→15:42)
[2022-07-19 06:48] LABS: Absolute Lymphocytes (CBC) 1.7 K/uL (0.7-4.9); Hematocrit 37.1 % (36.0-45.0); Lymphocytes % 11.2 % (15.3-44.8); MCV 92.5 fL (80-100); MPV 7.7 fL (7.6-11.3); RBC Red Blood Cell Count 4.01 M/uL (3.86-4.86)
[2022-07-19] MEDS ORDERED: PANTOPRAZOLE 40MG TABLET PO SCH (09:00)
--- NOTE | 2022-07-19 09:34 | OP ---
Date of Procedure: 07/18/2022 Surgeon: Hillary Kirby MD Data Communications Technician: Bell Foster. Preoperative Diagnoses: Incomplete uterovaginal prolapse stage II and stress urinary incontinence. Postoperative Diagnoses: Incomplete uterovaginal prolapse stage II and stress urinary incontinence. Procedures Performed: 1.Anterior repair along with anterior approach left sacrospinous ligament fixation colpopexy, internet webmaster ior wall; enterocele; perineocele repairs. 2.Stress urinary incontinence treated by transobturator midurethral sling. 3.Cystoscopy. Ebl: 150. Urine Output: 100. Fluids: 2600. Specimen: None. Complications: None. Drains: Chavis catheter and vaginal packing. Findings: POP-Q 0, +1, -2, 5.5, 10, 7 6, 0, +1, -3. There was a small perineocele that w as evident at the time of this examination much more than in the clinic and this will be repaired. Cystoscopy: Both ureteric orifices had strong jets of urine. No evidence of any foreign body or tra haile to the bladder. After the left sacrospinous fixation colpopexy, the anterior bulge was completely reduced. A very sl ight right paravaginal defect has remained. Her POP-Q coming out of the OR -2, -3, -6, 4, thick, 6-7 cm, - 3, -3, -7. Indications: The patient is a 56-year-old female who was evaluated with stress urinary incontinence and underwent transobturator mid urethral sling 1 year ago in May of 2020. Approximately 6 months later, she had significant urinary retention and given her anterior wall prolapse the sling appeared to be contributing to her voiding dysfunction. Although the patient was asymptomatic, the PVR was o chaitanya 200, which was more than 50% of volume. So as she had urodynamics done, consented and taken for urethrolysis. Good portion of the mesh under the urethra and peritoneal areas was released and excis ed all the way to the obturator membrane and once this was done, she had to have treatment for BRIE as her stress incontinence was intolerable and significant. The patient underwent debulking procedure x2 and this was not effective. She wanted a sling bag and so we discussed at this point, that I woul d recommend taking care of her anterior prolapse as well and then perform a sling, which decreases th e risk of obstruction for the patient given her anatomy. The patient and her daughters have understo od her options and benefits and risks of not having and afterwards they came back and the patient has consented for uterine preserving sacrospinous ligament fixation colpopexy, possible biologic graft a ugment and repair if needed, posterior repair and another sling placement, most likely a transobturat or sling. Possibility of future procedure was also discussed. Description Of Procedure: The patient was consented and taken back to the OR. 2 g of Ancef were giv en. SCDs were placed. Time-out was done. Positioning was checked after the patient was placed in s upine position. General anesthesia was given and then she was repositioned in dorsal lithotomy posit ion in Mohamud stirrups. Vulva, vagina, lower abdomen, medial thigh, and perineum were prepped and draped in a sterile fashion . Chavis was placed to drain the bladder, retracted superiorly and clamped. The UVJ was picked up wi th an Allis clamp. The anterior vaginal wall of the urethra was at least 3 cm. Then in about 3-3.5 cm her point C was present and this had descended all the way down. As I replaced point C back in it s position, slightly above the level of the ischial spine, there is a full correction of the anterior wall, so went ahead and decided to perform an anterior sacrospinous colpopexy as this was the compar tment through which uterus was falling and there was no need for biologic graft augmentation, possibl y if this was done and this satisfactorily reduces the bladder. So a midline incision was made after injecting dilute vasopressin. 25 cc was injected in the midline and lateral aspects. A midline inc ision was made from the UVJ all the way to the cervix. UVJ was exposed. Cervix was exposed by disse cting the bladder superiorly. Then laterally, bladder was dissected all the way to the sulci. The r ight sacrospinous space was more difficult to access than the left so decided to go on the left side and significantly easy to get to the left paravaginal space and perirectal space. Ischial spine was palpated and sacrospinous ligament was cleaned up. Once this was done, the bowel was retracted media lly and 2 Prolene sutures were placed using the Capio device in the mid ligament as patient was short 2 cm and was almost mid ligament from the ischial spine. These were held and clamped and the cervix was nicely dissected. The sutures were placed on the late ral aspect on the left side of the cervix. Once these 2 passed through the cervical stroma then the anterior compartment was closed with the help of 2-0 Vicryl. Once this was done for just about a cm, then the sacrospinous sutures were tied down. The cervix had a very good lift and the anterior comp artment noted to be very well lifted. Once this was in place, I went ahead and was able to close the anterior vaginal wall with 0 Vicryl in continuous running locked fashion. No trimming was performed here and there was excellent support and lift. Slight right paravaginal defect was present __ was present. Mid urethral area was picked up with 2 Allis clamps. A midline incision was made wi th the scalpel using the Metzenbaum scissors staying underneath the previous scar. Dissection was ca rried to the ipsilateral obturator space hugging the inferior pubic ramus on both sides. Once this w as done, there was slightly more bleeding from the right side than on the left side; however, it was slightly difficult to suction on the left side, but no evidence of any vaginal perforation and once t he obturator was placed we then placed the perforators then the guides were placed. Dagoberto was passed . Plastic dilator was pulled out. The mesh and the sheath were held with Diana clamps and dilator w as cut out. Tensioning was performed with picking up the mid urethral area to keep the flap. ____ graft flat. Then, 0.5 cm of the graft was picked up with an Allis clamp. Then, this was mani t flush with urethra, released the sling and pulled out, mesh sat flush with the skin and Dermabond applied. Irrigation and suction were performed then closed with continuous runn ing horizontal mattress fashion 3-0 Vicryl sutures. Chavis removed. Cystoscopy was performed. Urete rs both had good jets of urine. No evidence of any trauma to the bladder, bladder neck or the urethr a. Chavis was replaced and posterior repair was performed. 2 Allis clamps were placed at the remnants of the hymenal ring. The distal part had clear perineocele all the way to the external sphincter and t hen proximally there is a detachment of the rectovaginal septum from the perineal body an d another triangular incision was made on the distal 1/3 of the posterior peritoneum. All the vagina l epithelium and margins on the lateral aspects were dissected until the perineal body str uctures were found. Then took the dissection anteriorly, palpating the connective tissue from the va ginal epithelium all the way, dissecting to the apex and finding the posterior enterocele. Once all this was laid out, the posterior enterocele was closed with the help of 2-0 Monocryl sutures from fr[place] e to side x10. Then attention was directed to the perineal body reconstruction. This was done by th e help of identification with Allis clamps on both sides. [id number] sutures were placed. Two 2-0 Vicryl suture and three 2-0 Vicryl sutures in 2 layers each were placed to bring the perineal body t ogether. Once this was done 2-0 PDS suture was used to then reattaching this carefully to the perineal body with the PDS suture and tying this knot inside vagina. Then 2-0 Vicryl was used to close in continuous running locked fashion in the posterior vaginal wall after trimming the flap and apposed well, but without cutting out length and perineum was closed with the help of subcuticular 3-0 Vicryl and then subcutaneous. Rectal exam negative. Vaginal packing w as done. Chavis was left alone and she was recovered from anesthesia and taken to PACU in stable cond ition. Instrument, needle, and sponge counts were correct x2 at the end of the case. Entire family, 2 daughters and son were debriefed about the procedure. She will stay overnight and will be dischar ged tomorrow with Chavis and voiding trial. YUMIKO/BETSEY Voice ID: [id number] Report ID: [id number]
[2022-07-19] MEDS ORDERED: HOME MED 1 EA UNK (Estradiol [Estrace] 42.5 GM Cream.Appl) OPTH SCH (17:00)
[2022-07-19 18:10] VITALS: BMI 38.8
[2022-07-19 19:43] VITALS: BP 134/68; TEMP 97.4
[2022-07-19 19:59] VITALS: O2SAT 92
== END 2022-07-19 20:45 | disposition home or self-care (01) ==
LOC: OR 08:35 → 2ND-WC 18:46 → 4TH 07-19 06:25
PROVIDERS: ADMIT Obstetrics & Gynecology; ATTEND Obstetrics & Gynecology
PROC: 0TSD0ZZ Reposition Urethra, Open Approach (ICD-10-PCS; 2022-07-18)
PROC: 0JQC0ZZ Repair Pelvic Region Subcutaneous Tissue and Fascia, Open Approach (ICD-10-PCS; 2022-07-18)
PROC: 0UQF0ZZ Repair Cul-de-sac, Open Approach (ICD-10-PCS; 2022-07-18)
PROC: 0JQC0ZZ Repair Pelvic Region Subcutaneous Tissue and Fascia, Open Approach (ICD-10-PCS; 2022-07-18)
PROC: 0HQ9XZZ Repair Perineum Skin, External Approach (ICD-10-PCS; 2022-07-18)
PROC: 0USG7ZZ Reposition Vagina, Via Natural or Artificial Opening (ICD-10-PCS; principal; 2022-07-18 10:30)
DX: N81.2 Incomplete uterovaginal prolapse (principal); N39.3 Stress incontinence (female) (male); Z20.822 Contact with and (suspected) exposure to COVID-19; I10 Essential (primary) hypertension; K21.9 Gastro-esophageal reflux disease without esophagitis
CPT/HCPCS: 85025; 36415 ×2; 87811; 57282; 57288; 57265; G0379; J2704; J2001; J2250; J3010 ×3; J1100; J2270 ×3; J2175; A4216; J1170; G0378 ×3; J7120 ×6; J2405 ×2; J0690 ×2